=== PATIENT | female | born 1980 | race Caucasian/White ===

== ENCOUNTER 2024-11-03 15:06 | Outpatient (OUT) | payer OTHER, SELFPAY ==
--- OUTSIDE RECORDS SUMMARY | 2010-07-03 12:34 | XMS_ITS | Encounter Summary ---
Author Organization [facility] Address [address] [facility], [address] [place] [address] Care Team Providers Care Redrawer Name Role Phone Unavailable Primary Care Provider Unavailabl e Encounter Details Date Type Department Care Team (Late st Contact Info) Description 07/03/2010 12:34 PM EDT Hospital Encounter [address] [address] Reagan Hernández MD [address] [place] [address] Social History Tobacco Use Types Packs/Day Years Used Date Smoking Tobacco: Former Cigarettes 0.5 20 Smokeless Tobacco: Never Comments:occasional and soci ally Alcohol Use Standard Drinks/Week Comments Yes 0 (1 standard drink = 0.6 oz pur e alcohol) Ocassionally Comments No Sex and Gender Information Value Date Recorded Sex Assigned at Not on file Legal Sex Female 3:52 PM EST Gender Identity Not on file Sexual Orientation Not on file COVID-19 Exposure Response Date Recorded In the last 10 days, have yo u been in contact with someone who was confirmed or suspected to have Coronavirus/COVID-19? No / Unsure 05/04/2022 1:43 PM EST documented as of this encounter Plan of Treatment Not on file documented as of this encounter Visit Diagnoses Not on filedocumented in this encounter
--- OUTSIDE RECORDS SUMMARY | 2012-01-30 13:00 | XMS_ITS | Encounter Summary ---
Author Organization [facility] Address [address] [facility], [address] [place] [address] Care Team Providers Care Event Operations Manager Name Role Phone Jose Armando Alanis DO Primary Care Provider [phone] Encounter Details Date Type Department Care Team (Late st Contact Info) Description 01/30/2012 12:00 PM EST Hospital Encounter [facility] ([facility]) [address] [id number] Mara Duarte, ATTENDING PATHOLOGIST - UNIT RECEPTIONIST [address] [place] [id number] Social History Tobacco Use Types Packs/Day Years [...] Diagnoses Not on filedocumented in this encounter Care Teams Event Operations Manager Relationship Specialty Start Date End Date Jose Armando Alanis DO [address] [place] [address] PCP - General 01/30/12 03/07/12 documented as of this encounter
--- OUTSIDE RECORDS SUMMARY | 2024-11-03 15:10 | XMS_ITS | Clinical Summary ---
Author Organization [employer] Address [id number] [address] [place] [address] Care Team Providers Care Job Coaching Name Role Phone Angela Ventura MD Primary Care Provider [phone] Allergies Active Allergy Reactions Criticality Noted Date Comments Sulfamethoxazole-Trimethopri m Hives High 07/20/2013 Trimethoprim Swelling,Other (See Comments) 12/31/2018 Medications clonazePAM (KlonoPIN) 1 mg tablet Take 1 tablet (1 mg total) by mouth nightly as needed. Active escitalopram (LEXAPRO) 20 mg tablet Take 1.5 tablets (30 mg total) by mouth nightly. Active cyanocobalamin (VITAMIN B-12) 1,000 mcg/mL injection Inject 1 mL (1,000 mcg total) into the appropriate muscle every 30 (thirty) days. Pt taking 2.000 Active SUMAtriptan (IMITREX) 25 mg tablet Take 1 tablet (25 mg total) by mouth once as needed for migraine. May repeat in 2 hours if unresolved. Do not exceed 200 mg in 24 hours. Active magnesium oxide (MAG-OX) 400 mg tablet Take 1 tablet (400 mg total) by mouth in the morning. Active dextroamphetami ne-amphetamine (ADDERALL) 20 mg tablet Take 0.5 tablets (10 mg total) by mouth in the morning. Active aspirin-acetami nophen-caffeine (EXCEDRIN MIGRAINE) 250-250-65 mg per tablet Take 2 tablets by mouth. Active cetirizine (ZyrTEC) 10 mg tablet 1 (one) time each day at the same time. Active Active Problems Problem Noted Date Diagnosed Date Abnormal blood chemistry level 04/12/2021 Adjustment disorder with anxiety 04/12/2021 Altered thought processes 04/12/2021 Anxiety 04/12/2021 Attention deficit hyperactivity disorder (ADHD) 04/12/2021 Cervicogenic headache 04/12/2021 Circadian rhythm sleep disorder, shift work type 04/12/2021 Gastro-esophageal reflux disease without esophag itis 04/12/2021 Macroglossia 04/12/2021 Major depression single episode, in partial [place] ssion 04/12/2021 Obstructive sleep apnea 04/12/2021 Occipital neuralgia 04/12/2021 Pharyngeal stenosis 04/12/2021 Insomnia 04/12/2021 Psychalgia 04/12/2021 Sciatica 04/12/2021 Smoker 04/12/2021 Thyroid nodule 04/12/2021 Assessment & Plan (03/04/2024 4:14 PM EST): Tiffany Johnson is 43 y.o. female with a left thyroid nodule stable in size according to today's ultrasound. No intervention needed since nodule has been proven benign by biopsy and patient is asymptomatic. We will obtain thyroid function studies today and patient will be notified about the results. Follow-up ultrasound will be done in 1 year Assessment & Plan (02/27/2023 4:14 PM EST): Tiffany Johnson is 42 y.o. female with a left thyroid nodule stable in size according to today's ultrasound. No intervention needed since nodule has been proven benign by biopsy and patient is asymptomatic. Recent TSH was slightly suppressed so we will recheck thyroid function studies and thyroid antibodies today. Follow-up ultrasound will be done in 1 year. Patient reports tiredness so we will obtain CBC vitamin B12 and vitamin-D levels and patient will be notified about the results Assessment & Plan (03/14/2022 2:54 PM EST): Tiffany Johnson is 41 y.o. female with a multinodular goiter stable in size according to today's ultrasound. No intervention needed since dominant nodule has been proven benign by biopsy and patient is asymptomatic. 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 Reviewed with her the risk of bleeding if these enlarge > 4 cm. Will recheck with renal u/s 1 year Kidney stones 06/27/2020 Overview (06/01/2024): 07/11/20: CT 07/11/20 showed a few small intrarenal stones 11/04/2021: Based on symptomatology likely she dropped a stone into the left ureter. We discussed options of proceeding with CT stone protocol now vs conservative approach with straining urine, hydration, tamsulosin, [place] prn, Pyridium. She would prefer the latter which is reasonable. She is going to schedule the CT a few weeks out and I will see her back to review those results. Sent her urine for culture but only call if positive. Ultimately, if she does not end up getting a CT will need CHILO at minimum to f/u on the right angiomyolipoma. 12/02/2021: Multiple very small intrarenal calculi left greater than right. Discussed metabolic workup but she declines. She is asymptomatic. Will follow-up in 1 year with renal ultrasound (f/u angiomyolipoma) and KUB (f/u stones). 01/06/23: stable small stone burden. Plan recheck kub 2 years 02/29/24: Recent episodes of gross hematuria. Flank pain started approximately 3 days ago as well as urethral pressure which has been ongoing for several weeks. We will plan to get updated CT urogram since she has had a few episodes of gross hematuria. She would like to follow up in [place]. MyChart results of urine culture. She will schedule CT in [place] through [facility]. She will let me know when she gets this scheduled. She will get creatinine checked today 06/01/24: Culture was positive, so she never followed through with the CT. She would like to get it scheduled now. Assessment & Plan (06/01/2024 4:29 PM EDT): We will need to notify her of the results through [employer]. Assuming no acute findings, we will have her meet with Dr. Bradshaw in 3-4 months. She will call sooner if any problems Recurrent urinary tract infection 06/27/2020 Overview (06/01/2024): 06/27/20: 1.5 year history of uncomplicated recurrent UTIs with no hematuria with E coli. UA today is negative. Strongly correlated with intercourse. We will check a renal/bladder ultrasound and try postcoital Macrobid. I asked her to contact the office any time she suspects a UTI so we can place an order for UA/C&S. We did discuss cystoscopy may be needed down the road as well 10/09/20: Doing well. Reviewed self start therapy with macrobid. Plan recheck 1 year with renal u.s 11/04/2021: Overall doing well with self start and postcoital Macrobid--will continue--refilled for her today 12/02/2021: Urine culture 11/04/2021 was negative. Asymptomatic today. I total call the 1st sign of symptoms to obtain an order for urine culture. 06/01/24: Gross hematuria and irritative symptoms in February. Culture was positive. No hematuria since, but she has had intermittent frequency/urgency. C&S today is suggestive of infection. We will send for culture and start her on Macrobid. She will look in to cranberry/D mannose and is interested in trying postcoital Macrobid again. Assessment & Plan (06/01/2024 4:28 PM EDT): I will notify her of the results through [employer]. Migraine without aura and wi thout status migrainosus, not intractable 01/13/2020 Sinus tachycardia 04/14/2019 Angle's class II division 1 malocclusion 018 Microgenia 02/24/[address] scan, gastrointestinal tract 014 Other plastic surgery for unacceptable cosmetic appearance 12/26/2013 Intussusception intestine 12/12/2013 Encounters Date Type Department Care Team Description 10/17/2024 Telephone [facility] [address] [place] [address] [place] [address] [place] [address] James Bradshaw MD 10/13/2024 Telephone [facility] [address] [place] [address] [place] [address] Amy Pereira, NORMA from Last 3 Months Immunizations Immunization Administration Dates Next Due COVID-19, mRNA, LNP-S, PF, 1 00mcg/0.5mL Dose 05/26/2020,05/02/2020 Influenza, Unspecified 01/03/2019,01/15/2017,10/2015 Family History Medical History Relation Name Comments Heart attack Father Hypertension Father Throat cancer Father Hypertension Mother Anesthesia problems Neg Hx BRCA 1/2 Neg Hx Breast cancer Neg Hx Relation Name Status Comments Father Mother Alive Social History Tobacco Use Types Packs/Day Years Used Date Smoking Tobacco: Former Cigarettes Smokeless Tobacco: Never Comments:not interested in q uitting at this time Alcohol Use Standard Drinks/Week Comments Yes 0 (1 standard drink = 0.6 oz pur e alcohol) twice per week Social Connection and Isolat ion Panel [NHANES] Answer Date Recorded In a typical week, how many times do you talk on the phone with family, friends, or neighbors? More than three times a week 08/03/2020 How often do you get togethe r with friends or relatives? More than three times a week 08/03/2020 How often do you attend chur R[employer] or yarsani services? Never 08/03/2020 Do you belong to any clubs o r organizations such as rastafarian groups, unions, fraternal or athletic groups, or school groups? No 08/03/2020 How often do you attend meet ings of the clubs or organizations you belong to? Never 08/03/2020 Are you , , di vorced, , never , or living with a partner? 08/03/2020 AUDIT-C Answer Date Recorded Q1: How often do you have a drink containing alc ohol? 2-3 times a week 08/03/2020 Q2: How many drinks containi ng alcohol do you have on a typical day when you are drinking? 1 or 2 08/03/2020 Q3: How often do you have si x or more drinks on one occasion? Never 08/03/2020 Overall Financial Resource Strain (CARDIA) Answe r Date Recorded How hard is it for you to pa y for the very basics like food, housing, medical care, and heating? Not hard at all 08/03/2020 PHQ-2 Answer Date Recorded Total Score 15 05/01/2023 [facility] - Occupational Stress Questionnaire Answer Date Recorded Do you feel stress - tense, restless, nervous, or anxious, or unable to sleep at night because your mind is troubled all the time - these days? Not at all 08/03/2020 Exercise Vital Sign Answer Date Recorde d On average, how many days pe r week do you engage in moderate to strenuous exercise (like a brisk walk)? 0 days 08/03/2020 On average, how many minutes do you engage in exercise at this level? 0 min 08/03/2020 PRAPARE - Transportation Answer Date Re corded In the past 12 months, has l ack of transportation kept you from medical appointments or from getting medications? No 07/21 In the past 12 months, has l ack of transportation kept you from meetings, work, or from getting things needed for daily living? No 08/03/2020 Childcare Answer Date Recorded Do problems getting child ca re make it difficult for you to work or study? No 08/03/2020 Employment Answer Date Recorded Do you need help finding a [facility] and/or a training program? No 08/03/2020 Hunger Screening Answer Date Recorded Within the past 12 months we worried whether our food would run out before we got money to buy more. Never True 06/01/2024 Within the past 12 months th e food we bought just didn't last and we didn't have money to get more. Never True 06/01/2024 Purpose - Life Answer Date Recorded I have a purpose and direction in my life. Stron gly Agree 08/03/2020 Comments No Sex and Gender Information Value Date Recorded Sex Assigned at Not on file Legal Sex Female 11:23 AM EDT Gender Identity Not on file Sexual Orientation Not on file Last Filed Vital Signs Vital Sign Reading Time Taken Comments Blood Pressure 119/82 06/01/2024 4:05 PM EDT Pulse 82 06/01/2024 4:05 PM EDT Temperature 36 C (96.8 F) 08/05/2020 8:39 AM EDT Respiratory Rate 18 10/09/2020 12:44 PM EDT Oxygen Saturation 100% 08/05/2020 8:39 AM EDT Inhaled Oxygen Concentration - - Weight 70.3 kg (155 lb) 06/01/2024 4:05 PM EDT Height 175.3 cm (5' 9 ) 06/01/2024 4:05 PM EDT Body Mass Index 22.89 06/01/2024 4:05 PM EDT Plan of Treatment Upcoming Encounters Date Type Department Care Team (Late st Contact Info) Description 03/10/2025 3:30 PM EST Office Ultrasound [facility] Adult Endocrinology, A Department of [facility] [address] [place] [address] Eugene Pedro MD [address] [place] [address] Health Maintenance Due Date Last Done Comments DTaP,Tdap and Td Vaccines (1 - Tdap) 10/22/1998 COVID-19 Vaccine (3 2023-2 5 season) 2023 05/26/2020, 05/02/2020 Depression Screening 05/01/2024 05/01/2023 Influenza Vaccine 11/21/2024 02/15/2024, , 01/09/2022, Additional history exists Adult BMI Screening 06/01/2025 06/01/2024 Tobacco Screening 06/01/2025 06/01/2024 Pap Smear Discontinued 04/12/2021, 03/24, 03/22/2019, Additional history exists Medical Devices Implanted Type Area Mechanist Device Identifier Shelf Expiration Date Model / Serial / Lot Plt Bn 4 Hl Fc Id Othgn - [id number] Implanted:Qty : 1 on 08/03/2020 by Mandy Rao DDS at [facility] Plate N/A: Mouth ALONSO CRANIOMAXILLOFACIAL [id number] / / Scr 8mm Mmf - [id number] Implanted:Qty : 1 on 08/03/2020 by Mandy Rao DDS at [facility] Screw N/A: Mouth ALONSO JOSEBINGER [id number] / / Scr Bn 5mm 2mm Slf Drl Xpn Ea=Bill-Only - [id number] Implanted:Qty : 16 on 08/03/2020 by Mandy Rao DDS at [facility] Screw N/A: Mouth ALONSO CRANIOMAXILLOFACIAL [id number] / / Scr Bn 6mm 2.3mm St Er Xpn Ea=Bill-Only - [id number] Implanted:Qty : 1 on 08/03/2020 by Mandy Rao DDS at [facility] Screw N/A: Mouth ALONSO CRANIOMAXILLOFACIAL [id number] / / Scr 2.0 X 8mm Bone Cross - [id number] Implanted:Qty : 1 on 08/03/2020 by Mandy Rao DDS at [facility] Screw N/A: Mouth ALONSO CRANIOMAXILLOFACIAL [id number] / / Scr 2.0 X 10mm Bone Cross - [id number] Implanted:Qty : 3 on 08/03/2020 by Mandy Rao DDS at [facility] Screw N/A: Mouth ALONSO CRANIOMAXILLOFACIAL [id number] / / Scr 2.0 X 12mm Bone Cross - [id number] Implanted:Qty : 1 on 08/03/2020 by Mandy Rao DDS at [facility] Screw N/A: Mouth ALONSO CRANIOMAXILLOFACIAL [id number] / / Scr 2.0 X 14mm Bone Cross - [id number] Implanted:Qty : 1 on 08/03/2020 by Mandy Rao DDS at [facility] Screw N/A: Mouth ALONSO CRANIOMAXILLOFACIAL [id number] / / Procedures Procedure Name Priority Date/Time Associated Diagnosis Comments PAP SMEAR Routine 04/12/2021 6:28 PM EST Screening for cervical cancer from Last 3 Months or Most Recently Relevant to Health Maintenance Results * Pap Smear (04/12/2021 6:28 PM EST) 04/12/2021 6:28 PM EST 04/12/2021 6:30 PM EST Narrative COPATH - 04/15/2021 4:19 PM EST [facility] [address] [place] [address] Gynecologic Cytology Consultation Patient Name: TIFFANY JOHNSON : 1980 (Age: 40) Gender: F Taken: 04/12/2021 Reported: 04/15/2021 Physician(s): ALECIA Hawkins ([phone]) Copy To: [facility] Rec. #: [id number] Acct: # [id number] Final Cytologic Interpretation ThinPrep Pap Test (Vaginal): Satisfactory for evaluation. NEGATIVE FOR INTRAEPITHELIAL LESION OR MALIGNANCY. [facility]04/15/2021 Interpretation performed [place] [address], License number: [id number]. Electronically Signed Out By ANETA Luong(ASCP) Date of Last Menstrual Period: (None Given) Other Clinical Conditions: Hysterectomy Previous abnormal pap Z12.4 Screening for malignant neoplasm of cervix Source of Specimen ThinPrep Pap Test (Vaginal) Thin Prep Pap (STEEL WHEEL ENGRAVER) Fee Code(s): G0145 The Pap test is a screening test with an inherent, but low, probability of error. The Pap test is primarily effective for the diagnosis and prevention of squamous cell carcinoma. Regular screening is critical for prevention. ThinPrep liquid-based slides, which meet the Financial Institution Treasurer criteria for automated screening, have been screened by the [facility] System (as of 12/07/06) along with an additional manual rescreening by a digital strategist and, if indicated, by a pathologist. us Grace M Krotzer PARTNER INTEGRATION PLANNER-SECURITY OFFICER PATHOLOGY/CYTOLOGY ORDER SALVADOR Final Result COPATH from Last 3 Months or Most Recently Relevant to Health Maintenance Insurance [employer] [place] [id number] Advance Directives * Full Code (Latest Code Status on File) Date Activated Date Inactivated Comments 08/03/2020 6:32 PM 08/05/2020 4:34 PM Care Teams Job Coaching Relationship Specialty Start Date End [place] [address] PCP - General 09/19/17
--- OUTSIDE RECORDS SUMMARY | 2024-11-03 15:10 | XMS_ITS | Encounter Summary ---
Author Organization [employer] Address [id number] [address] [place] [address] Care Team Providers Care Door Operator Name Role Phone Angela Ventura MD Primary Care Provider [phone] Encounter Details Date Type Department Care Team (Late st Contact Info) Description 10/13/2024 [facility]phone [facility] [address] [place] [address] [place] [address] [place] [address] Amy Pereira CMA Social History Tobacco Use Types Packs/Day Years [...] 08/03/2020 How often do you attend chur ch or presybeterian services? Never 08/03/2020 Do you belong to any clubs o r organizations such as confucianist groups, unions, fraternal or athletic groups, or [...] Answer Date Recorded Total Score 15 05/01/2023 [facility] - Occupational Stress Questionnaire Answer Date [...] Recorded Do you need help finding a l al career center and/or a training program? No [...] a purpose and direction in my life. Lizeth gly Agree 08/03/2020 Comments No Sex and Gender Information Value Date Recorded Sex Assigned at Not on file Legal Sex Female 11:23 AM EDT Gender Identity Not on file Sexual Orientation Not on file documented as of this encounter Miscellaneous Notes * Telephone Encounter - Amy Pereira CMA - 10/13/2024 3:16 PM EDT Left voicemail regarding the upcoming appointment. CT is not scheduled. CT needs to be done. Provided the central scheduling phone number [phone]. documented in this encounter Plan of Treatment Upcoming Encounters Date Type Department Care Team (Late st Contact Info) Description 03/10/2025 3:30 PM EST Office Ultrasound [facility] Adult Endocrinology, A Department of [facility] [address] [place] [address] Eugene Pedro MD [address] [place] [address] documented as of this encounter Visit Diagnoses Not on filedocumented in this encounter Additional Health Concerns Assessment Noted Time PHQ-9 Depression Total Score: 15 05/01/ 024 10:37 AM EST documented as of this encounter Care Teams Door Operator Relationship Specialty Start Date End Date [place] [address] [place] [address] PCP - General 09/19/17 documented as of this encounter
--- OUTSIDE RECORDS SUMMARY | 2024-11-03 15:10 | XMS_ITS | Encounter Summary ---
Author Organization [employer] s tem Address [facility] [id number] [address] [place] [address] Care Team Providers Care Film Touch Up Inspector Name Role Phone Angela Ventura MD Primary Care Provider [phone] Encounter Details Date Type Department Care Team (Late st Contact Info) Description 06/10/2024 [facility] [address] [place] [address] Emch, Ramila, ERIC Social History Tobacco Use Types Packs/Day Years [...] often do you attend chur ch or sikh services? Never 08/03/2020 Do you belong to any clubs o r organizations such as latter day groups, unions, fraternal or athletic groups, or [...] Answer Date Recorded Total Score 15 05/01/2023 [facility] of Occupat ional Health - Occupational Stress [...] encounter Miscellaneous Notes * Telephone Encounter - Ramila Frank CNA - 06/10/2024 3:40 PM EDT Pt called back & confirmed she picked up AB documented in this encounter Plan of Treatment Upcoming Encounters Date Type Department Care Team (Late st Contact Info) Description 03/10/2025 3:30 PM EST Office [facility], A Department of [facility] [address] [place] [address] Eugene Pedro MD [address] [place] [address] documented as of this encounter Visit Diagnoses Not on filedocumented in this encounter Additional Health Concerns Assessment Noted Time PHQ-9 Depression Total Score: 15 024 10:37 AM EST documented as of this encounter Care Teams Film Touch Up Inspector Relationship Specialty Start Date [place] [address] PCP - General 09/19/17 documented as of this encounter
--- OUTSIDE RECORDS SUMMARY | 2024-11-03 15:10 | XMS_ITS | Encounter Summary ---
Author Organization [facility] Address [id number] [address] [place] [address] Care Team Providers Care Parts Control Clerk Name Role Phone Angela Ventura MD Primary Care Provider [phone] Reason for Visit * Reason Comments Med Change Request Encounter Details Date Type Department Care Team (Late st Contact Info) Description 12/26/2021 Refill [facility] [address] [place] [address] [phone] Nimo Gore PA [address] [place], [place] [id number] Social History Tobacco Use Types Packs/Day Years Used Date Smoking Tobacco: Every Day Cigarettes Smokeless Tobacco: Never Comments:not interested in [...] often do you attend chur ch or zoroastrian services? Never 08/03/2020 Do you belong to any clubs o r organizations such as spiritism groups, unions, fraternal or athletic groups, or [...] 08/03/2020 PHQ-2 Answer Date Recorded Total Score 0 08/03/2020 [facility] of Occupat ional Health - Occupational Stress [...] Do you need help finding a l ocal career center and/or a training program? No 08/03/2020 Purpose - Life Answer Date Recorded I have a purpose and direction in my life. Stron gly Agree 08/03/2020 Comments No Sex and Gender Information Value Date Recorded Sex Assigned at Not on file Legal Sex Female 11:23 AM EDT Gender Identity Not on file Sexual Orientation Not on file documented as of this encounter Miscellaneous Notes * Telephone Encounter - SYEDA Garcia - 12/26/2021 3:16 AM EDT Gin patient, unless she is actively passing a stone, she does not need Flomax documented in this encounter Plan of Treatment Upcoming Encounters Date Type Department Care Team (Late st Contact Info) Description 03/10/2025 3:30 PM EST Office Ultrasound [facility] Adult Endocrinology, A Department of [facility] [address] [place] [address] Eugene Pedro MD [address] [place] [address] documented as of this encounter Visit Diagnoses Not on filedocumented in this encounter Additional Health Concerns Assessment Noted Time PHQ-9 Depression Total Score: 0 08/04/19 21 10:03 PM EDT documented as of this encounter Care Teams Parts Control Clerk Relationship Specialty Start Date End Date [place] [address] PCP - General 09/19/17 documented as of this encounter
--- OUTSIDE RECORDS SUMMARY | 2024-11-03 15:10 | XMS_ITS | Encounter Summary ---
Author Organization [facility] tem Address [id number] [address] [place] [address] Care Team Providers Care Pupil Personnel Services Director Name Role Phone Angela Ventura MD Primary Care Provider [phone] Reason for Referral * Diagnostic Imaging (Routine) - Closed Specialty Diagnoses / Procedures Referred By Keyur choi Referred To Contact Radiology Diagnoses Renal mass Procedures CT abdomen with and without contrast Nimo Gore PA [address] [place] [id number] Phone: tel: fax: Referral ID Status Reason Start Date Expiration Date Visits Re quested Visits Authorized [id number] Closed 06/29/2020 06/29/2021 1 1 Encounter Details Date Type Department Care Team (Late st Contact Info) Description 06/29/2020 [facility] [address] [place] [address] [phone] Nimo Gore PA [address] [place] [phone] Social History Tobacco Use Types Packs/Day Years Used Date Smoking Tobacco: Every Day Cigarettes Smokeless Tobacco: Never Comments:not interested in q uitting at this time Alcohol Use Standard Drinks/Week Comments Yes 0 (1 standard drink = 0.6 oz pur e alcohol) twice per week PHQ-2 Answer Date Recorded Total Score 0 07/18/2018 Childcare Answer Date Recorded Childcare Unknown 09/01/2018 Employment Answer Date Recorded Employment Unknown 09/01/2018 Purpose - Life Answer Date Recorded Purpose and direction in life Unknown Comments No Sex and Gender Information Value Date Recorded Sex Assigned at Not on file Legal Sex Female 11:23 AM EDT Gender Identity Not on file Sexual Orientation Not on file COVID-19 Exposure Response Date Recorded In the last month, have you been in contact with someone who was confirmed or suspected to have Coronavirus / COVID-19? Yes 06/29/2020 10:55 AM EDT documented as of this encounter Miscellaneous Notes * Telephone Encounter - SYEDA Garcia - 06/29/2020 1:00 PM EDT See results from renal ultrasound. Tabitha: Please call her regarding scheduling a CT renal mass protocol. * Telephone Encounter - Tabitha Davison - 06/29/2020 1:00 PM EDT Patsy Suero called & notified patient that you would like her to have a CT. She would like you to call her as she has some questions. Thank you, Tabitha 06/29/20 * Telephone Encounter - SYEDA Garcia - 06/29/2020 1:00 PM EDT I called her and answered her questions. She is ready to schedule * Telephone Encounter - Tabitha Davison - 06/29/2020 1:[address] IS SCHEDULED FOR 07/11/20 documented in this encounter Plan of Treatment Upcoming Encounters Date Type Department Care Team (Late st Contact Info) Description 03/10/2025 3:30 PM EST Office Ultrasound [facility], A Department of [facility] [address] [place] [phone] Eugene Pedro MD [address] [place] [address] documented as of this encounter Results * CT abdomen with and without contrast (07/11/2020 8:26 AM EDT) Anatomical Region Laterality Modality Body, Abdomen, Body Covera N/A Compu ismael Tomography 07/11/2020 8:42 AM EDT Narrative 07/11/2020 8:48 AM EDT CLINICAL HISTORY: A 39-year-old female with the history of the abnormal renal ultrasound with the small right renal mass. Further evaluation of the right renal mass. TECHNIQUE: Multidetector spiral CT scan of the abdomen is performed without and during intravenous administration of 100 cc of Omnipaque 300. Multiplanar reconstruction images are reformatted. COMPARISON: Comparison is made with prior CT scan of the abdomen without contrast of 03/21/2018 and the renal ultrasound examination of 06/29/2020. FINDINGS: Lung bases are clear. There is evidence of bilateral breast implants. Liver, spleen and pancreas are normal in size, configuration and attenuation. No focal mass is identified. Gallbladder is normal. No biliary ductal dilatation is identified. Adrenal glands are normal. Both kidneys are normal in size, configuration and position. There are tiny calcific calculi in the both kidneys. There is a left-sided parapelvic cyst. No evidence of significant hydronephrosis or perinephric stranding. Both kidneys show excretion of contrast. There is a 7 mm hypodense lesion in the posterolateral aspect of the right mid kidney. No perinephric fluid collection is identified. No other enhancing mass is identified. Visualized bowel loops are unremarkable. There is no evidence of retroperitoneal lymphadenopathy or ascites. IMPRESSION: 1. There are bilateral nonobstructing intrarenal tiny calcific calculi. No evidence of hydronephrosis or perinephric stranding. 2. There is a left-sided parapelvic cyst. 3. There is a 7 mm hypodense nonenhancing lesion in the right renal cortex posterolaterally. This abnormality seen in the region of the echogenic lesion on the recent ultrasound examination. 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 No evidence of other intra-abdominal mass or ascites. All CT scans at this facility use dose modulation, iterative reconstruction, and/or weight based dosing when appropriate to reduce radiation dose to as low as reasonably achievable. Finalized by Usman Morris MD on 07/11/2020 8:48 AM Procedure Note Usman Morris MD - 07/11/2020 CLINICAL HISTORY: A 39-year-old female with the history of the abnormalrenal ultrasound with the small right renal mass. Further evaluation ofthe right renal mass. TECHNIQUE: Multidetector spiral CT scan of the abdomen is performedwithout and during intravenous administration of 100 cc of Omnipaque 300.Multiplanar reconstruction images are reformatted. COMPARISON: Comparison is made with prior CT scan of the abdomen withoutcontrast of 03/21/2018 and the renal ultrasound examination of 06/29/2020. FINDINGS: Lung bases are clear. There is evidence of bilateral breastimplants. Liver, spleen and pancreas are normal in size, configuration andattenuation. No focal mass is identified. Gallbladder is normal. Nobiliary ductal dilatation is identified. Adrenal glands are normal. Both kidneys are normal in size, configuration and position. There aretiny calcific calculi in the both kidneys. There is a left-sidedparapelvic cyst. No evidence of significant hydronephrosis or perinephricstranding. Both kidneys show excretion of contrast. There is a 7 mmhypodense lesion in the posterolateral aspect of the right mid kidney. No perinephricfluid collection is identified. No other enhancing mass is identified. Visualized bowel loops are unremarkable. There is no evidence ofretroperitoneal lymphadenopathy or ascites. IMPRESSION: 1. There are bilateral nonobstructing intrarenal tiny calcific calculi.No evidence of hydronephrosis or perinephric stranding. 2. There is a left-sided parapelvic cyst. 3. There is a 7 mm hypodense nonenhancing lesion in the right renalcortex posterolaterally. This abnormality seen in the region of theechogenic lesion on the recent ultrasound examination. This is likely salima a angiomyolipoma 4. No evidence of other intra-abdominal mass or ascites. All CT scans at this facility use dose modulation, iterativereconstruction, and/or weight based dosing when appropriate to reduceradiation dose to as low as reasonably achievable. Finalized by Usman Morris MD on 07/11/2020 8:48 AM us Nimo LANDA IMG CT ORDERABLES Final Res ult documented in this encounter Visit Diagnoses Diagnosis Renal mass- Primary Unspecified disorder of kidney and ureter Renal mass Unspecified disorder of kidney and ureter documented in this encounter Additional Health Concerns Assessment Noted Time PHQ-9 Depression Total Score: 0 07/19/19 19 7:00 PM EDT documented as of this encounter Care Teams Pupil Personnel Services Director Relationship Specialty Start Date End Date [place] [address] [place] [address] PCP - General 09/19/17 documented as of this encounter
--- OUTSIDE RECORDS SUMMARY | 2024-11-03 15:10 | XMS_ITS | Encounter Summary ---
Author Organization [facility] Address [id number] [address] [place] [address] Care Team Providers Care Hand Bobbin Cleaner Name Role Phone Angela Ventura MD Primary Care Provider [phone] Encounter Details Date Type Department Care Team (Late Contact Info) Description 11/11/2018 Telephone [facility] [address] [place] [address] Starla Tran MA Social History Tobacco Use Types Packs/Day Years Used Date Smoking Tobacco: Former Cigarettes Smokeless Tobacco: Never Alcohol Use Standard Drinks/Week Comments Yes 0 (1 standard drink = 0.6 oz pur e alcohol) PHQ-2 Answer Date Recorded Total Score 0 07/18/2018 Childcare Answer Date Recorded Childcare Unknown 09/01/2018 Employment Answer Date Recorded Employment Unknown 09/01/2018 Comments No Sex and Gender Information Value Date Recorded Sex Assigned at Not on file Legal Sex Female 11:23 AM EDT Gender Identity Not on file Sexual Orientation Not on file documented as of this encounter Plan of Treatment Upcoming Encounters Date Type Department Care Team (Late Contact Info) Description 03/10/2025 3:30 PM EST Office Ultrasound [facility], A Department of [facility] [address] [place] [phone] Eugene Pedro MD [address] [place] [address] documented as of this encounter Visit Diagnoses Not on filedocumented in this encounter Additional Health Concerns Assessment Noted Time PHQ-9 Depression Total Score: 0 07/19/19 19 7:00 PM EDT documented as of this encounter Care Teams Hand Bobbin Cleaner Relationship Specialty Start Date End Date Angela Ventura MD [facility] [place] [address] PCP - General 09/19/17 documented as of this encounter
--- OUTSIDE RECORDS SUMMARY | 2024-11-03 15:10 | XMS_ITS | Clinical Summary ---
Author Organization [facility] Address [address] [place] [address] Care Team Providers Care Talent Management Manager Name Role Phone Angela Ventura MD Primary Care Provider [phone] Allergies Active Allergy Reactions Criticality Noted Date Comments Sulfamethoxazole-Trimethoprim Hives High 2017 Medications Aspirin-Acetaminoph en-Caffeine 250-250-65 mg per tablet Take 2 tablets by mouth four times daily. As needed Active cetirizine (ZYRTEC) 10 mg tablet Zyrtec 10 MG TABS Refills: 0 Active Active clonazePAM (KLONOPIN) 1 mg tablet Take 1 mg by mouth daily at bedtime. 0 8 Active cyclobenzaprine (FLEXERIL) 10 mg tablet 1 tablet. Active escitalopram oxalate (LEXAPRO) 20 mg tablet Take 20 mg by mouth once daily. Active ondansetron orally disintegrating (ZOFRAN ODT) 8 mg disintegrating tablet Take 8 mg by mouth. Active CHANTIX CONTINUING MONTH BOX 1 mg tablet Take 1 mg by mouth twice daily. 4 8 Active zaleplon (SONATA) 10 mg capsule Take 10 mg by mouth. 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 Last address used for calculation Not on file 03/01/2020 Comments Unknown Sex and Gender Information Value Date Recorded Sex Assigned at Not on file Legal Sex Female 2:12 PM EDT Gender Identity Not on file Sexual Orientation Not on file Plan of Treatment Health Maintenance Due Date Last Done Comments Anxiety Screening 10/22/1997 Depression Screening 10/22/1997 HIV Screening 10/22/1997 Hepatitis C Screening 10/22/1997 DTaP,Tdap,Td Vaccine (1 - Tdap) 10/22/1998 Hepatitis B Vaccine (1 of 3 - 19+ 3-dose series) 10/22 Cervical Cancer Screening 10/22/[address] Colonography 10/22/2024 Cologuard (FIT-DNA) 10/22/2024 Colonoscopy 10/22/2024 Colorectal Cancer Screening 10/22/2024 Diabetes Screening 10/22/2024 Fecal Occult Blood 10/22/2024 Lipid Screening 10/22/2024 Sigmoidoscopy 10/22/2024 Influenza Vaccine (#1) 2024 01/29/2016 Insurance [employer] OOS Member Subscriber Plan / Payer (Ef fective 2017-Present) Name:Tiffany Johnson Relation to Subscriber:Spouse Name:HARJIT JOHNSON Date of :1980 (Home) Address: [address] [place] [address] Payer ID:[id number] (NAIC) Type:PPO Address: [address] [place] [id number] [facility] Care Teams Talent Management Manager Relationship Specialty Start Date End Date Angela Ventura MD [address] [facility] [address] [place] [address] PCP - General Family Medicine 12/17/17
--- OUTSIDE RECORDS SUMMARY | 2024-11-03 15:10 | XMS_ITS | Encounter Summary ---
Author Organization [employer] s tem Address [facility] [id number] [address] [place] [address] Care Team Providers Care Face Hardener Name Role Phone Angela Ventura MD Primary Care Provider Encounter Details Date Type Department Care Team (Late st Contact Info) Description 05/24/2024 [facility] [address] [place] [address] Nisreen Darden CMA Social History Tobacco Use Types Packs/Day [...] often do you attend chur ch or orthodoxy services? Never 08/03/2020 Do you belong to any clubs o r organizations such as uatsdin groups, unions, fraternal or athletic groups, or [...] Answer Date Recorded Total Score 15 05/01/2023 [facility] of Occupat ional Health - Occupational Stress [...] Recorded Do you need help finding a [facility] career center and/or a training program? No 08/03/2020 Hunger Screening Answer Date Recorded Within the past 12 months we worried whether our food would run out before we got money to buy more. Never True 03/04/2024 Within the past 12 months th e food we bought just didn't last and we didn't have money to get more. Never True 03/04/2024 Purpose - Life Answer Date Recorded I have a purpose and direction in my life. Stron gly Agree 08/03/2020 Comments No Sex and Gender Information Value Date Recorded Sex Assigned at Not on file Legal Sex Female 11:23 AM EDT Gender Identity Not on file Sexual Orientation Not on file documented as of this encounter Miscellaneous Notes * Telephone Encounter - Nisreen Darden CMA - 05/24/2024 8:46 AM EST [facility] for patient to contact central scheduling for CT scheduling this date 05/24/2024. documented in this encounter Plan of Treatment Upcoming Encounters Date Type Department Care Team (Late st Contact Info) Description 03/10/2025 3:30 PM EST Office Ultrasound [facility], A Department of [facility] [address] [place] [address] Eugene Pedro MD [address] [place] [address] documented as of this encounter Visit Diagnoses Not on filedocumented in this encounter Additional Health Concerns Assessment Noted Time PHQ-9 Depression Total Score: 15 024 10:37 AM EST documented as of this encounter Care Teams Face Hardener Relationship Specialty Start Date End Date Angela [place] [address] [place] [address] PCP - General 09/19/17 documented as of this encounter
--- OUTSIDE RECORDS SUMMARY | 2024-11-03 15:10 | XMS_ITS | Clinical Summary ---
Author Organization [facility] Address [address] [facility] [facility], [address] [place] [address] Care Team Providers Care Weaver Dobby Loom Name Role Phone Angela Ventura MD Primary Care Provider [phone] Allergies Active Allergy Reactions Criticality Noted Date Comments Sulfamethoxazole-Trimethoprim Hives High 2013 Meperidine 06/13/2012 Medications cetirizine (ZYRTEC) 10 MG tablet Take 10 mg by mouth daily as needed. Active cyclobenzaprine (FLEXERIL) 5 MG tablet Take 5 mg by mouth 3 times daily as needed for Muscle spasms. Active zolpidem (AMBIEN) 10 MG tablet Take 10 mg by mouth nightly as needed for Sleep. Active ondansetron (ZOFRAN-ODT) 8 MG disintegrating tablet Take 8 mg by mouth every 8 hours as needed for Nausea or Vomiting. Active clonazePAM (KLONOPIN) 1 MG tablet Take 1 mg by mouth nightly as needed for Anxiety. 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 Immunizations Immunization Administration Dates Next Due Influenza Vaccine, unspecified formulation 01/28 Influenza Virus Vaccine 01/15/2017 Family History Medical History Relation Name Comments Inflam Bowel Dis Brother 1 Other Brother 2 diverticulitis Cancer Father throat Heart Disease Father Kidney Disease Father Heart Disease Mother High Blood Pressure Mother Relation Name Status Comments Brother 1 Alive Brother 2 Alive Father Mother Alive Social History Tobacco Use [...] Sign Reading Time Taken Comments Blood Pressure 131/75 05/04/2022 4:26 PM EST Pulse 87 05/04/2022 4:28 PM EST Temperature 36.6 C (97.9 F) 05/04/2022 1:43 PM EST Respiratory Rate 16 05/04/2022 1:43 PM EST Oxygen Saturation 100% 05/04/2022 4:28 PM EST Inhaled Oxygen Concentration - - Weight 68 kg (150 lb) 01/31/2015 10:50 AM EST Height 175.3 cm (5' 9 ) 01/31/2015 10:50 AM EST Body Mass Index 22.15 01/31/2015 10:50 AM EST Plan of Treatment Health Maintenance Due Date Last Done Comments Depression Screen 1991 Varicella vaccine (1 of 2 - 13+ 2-dose series) 10/22/1992 HIV screen 10/22/1994 Hepatitis C screen 10/22/1997 DTaP/Tdap/Td vaccine (1 - Tdap) 10/22/1998 Hepatitis B vaccine (1 of 3 - 19+ 3-dose series) 10/22/1998 HPV (without or with Pap) 10/22/2009 Cervical cancer screen 01/22/2018 Pap smear 01/22/2018 01/22/2015 Breast cancer screen 2019 Lipids 2019 11/10/2012, 07/01/2011 COVID-19 Vaccine ( season) 2023 05/26/2020, 05/02/2020 Flu vaccine (#1) 10/21/2024 01/09/2022, , 01/01/2021, Additional history exists Colonoscopy 10/22/2024 Colorectal Cancer Screen 10/22/2024 FIT/FOBT: Average risk 10/22/2024 Fecal-DNA (Cologuard): Average risk 10/22/2024 Sigmoidoscopy/CT colonography 10/22/2024 HPV vaccine (No Doses Required) Completed Hepatitis A vaccine Aged Out No longe r eligible based on patient's age to complete this topic Hib vaccine Aged Out No longer eligi ble based on patient's age to complete this topic Meningococcal (ACWY) vaccine Aged Out No longer eligible based on patient's age to complete this topic Meningococcal B vaccine Aged Out No l onger eligible based on patient's age to complete this topic Pneumococcal 0-49 years Vaccine Aged Out No longer eligible based on patient's age to complete this topic Polio vaccine Aged Out No longer elig ible based on patient's age to complete this topic Procedures Procedure Name Priority Date/Time Associated Diagnosis Comments [employer] CYTOLOGY Routine 01/22/2015 10:36 AM EST LIPID PANEL Routine 11/10/2012 6:15 AM EDT from Last 3 Months or Most Recently Relevant to Health Maintenance Results * [employer] Cytology (01/22/2015 10:36 AM EST) Cytology Report (NOTE) [id number] [facility] ANATOMIC PATHOLOGY [address] [place] [address]. [place], [place] [address] GYNECOLOGIC CYTOLOGY REPORT Patient Name: JULIANA JOHNSON MR#: [id number] Specimen #[id number] Source: 1: CERVICAL MATERIAL, (THIN PREP VIAL) Clinical History Z01.419 Routine db2 dba exam without abnormal findings High Risk HPV DNA testing is requested if the diagnosis is ASC-US Date of prior pap: 12/2013 LMP: 12/25/2014 INTERPRETATION CERVICAL MATERIAL, (THIN PREP VIAL): Specimen Adequacy: Satisfactory for evaluation. - Endocervical/trans formation zone component present. Descriptive Diagnosis: Negative for intraepithelial lesion or malignancy. Heating Systems Installer: ANETA Zavala(ASCP) Electronically Signed Out vilma/02/04/2015 02/04/2015 12:00 AM EST [facility] 01/22/2015 10:3 6 AM EST 01/24/2015 10:36 AM EST us Conner Carlson MD PATHOLOGY/CYTOLOGY ORDERABLES Final Result Performing Organization Address City/[facility]/ZIP Co de Phone Number [facility] [address] [place] [address] * Lipid panel (11/10/2012 6:15 AM EDT) Cholesterol 167 0 - 200 mg/dL 11/10/2012 8:34 AM EDT [facility] HDL 69 >50 mg/dL 11/10/2012 8:34 AM EDT [facility] Comment: Reference range: >= 60 Negative Risk Factor LDL Cholesterol 86 0 - 100 mg/dL 11/10/2012 8:34 AM EDT [facility] Comment: Direct (measured) LDL and calculated LDL are not interchangeable tests. Chol/HDL Ratio 2.0 1.0 - 5.0 11/10/2012 8:34 AM EDT [facility] Triglycerides 64 0 - 150 mg/dL 11/10/2012 8:34 AM EDT [facility] VLDL 13 6 - 30 mg/dL 11/10/2012 8:34 AM EDT [facility] Comment: Performed at [address] [place] [address] 11/10/2012 6:15 AM EDT 11/10/2012 6:33 AM EDT us Unknown Provider Result CHEMISTRY ORDERABLES Fin al Result Performing Organization Address [facility]/ZIP Co de Phone Number [facility] [address] [place], [place] [id number] [phone] [facility] from Last 3 Months or Most Recently Relevant to Health Maintenance Insurance [employer] Advance Directives * Full Code (Latest Code Status on File) Date Activated Date Inactivated Comments 12/12/2013 2:42 AM 12/12/2013 7:50 PM Care Teams Weaver Dobby Loom Relationship Specialty Start Date End Date Angela Ventura MD PCP - General 07/11/13
--- OUTSIDE RECORDS SUMMARY | 2024-11-03 15:10 | XMS_ITS | Encounter Summary ---
Author Organization [facility] Address [id number] [address] [place] [address] Care Team Providers Care Retail Sales Assistant Name Role Phone Angela Ventura MD Primary Care Provider [phone] Reason for Visit * Reason Comments Med Change Request Encounter Details Date Type Department Care Team (Late st Contact Info) Description 12/16/2021 Refill [facility] [address] [place] [phone] Nimo Gore PA [address] [place], [place] [id number] Social History Tobacco Use Types Packs/Day Years [...] often do you attend chur ch or hindu services? Never 08/03/2020 Do you belong to any clubs o r organizations such as taoism groups, unions, fraternal or athletic groups, or [...] Answer Date Recorded Total Score 0 08/03/2020 [facility] Occupat [facility] - Occupational [...] or suspected to have Coronavirus / COVID-19? No / Unsure 11/19/2021 3:58 PM EDT documented as of this encounter Miscellaneous Notes * Telephone Encounter - SYEDA Garcia - 12/16/2021 7:20 PM EDT Gin patient-please let her know there is no need to be on Flomax. Ct did not show that she was passing a stone * Telephone Encounter - Jenn Barfield LPN - 12/16/2021 7:20 PM EDT Pt notified. She states she is not taking it and does not need it at this time. documented in this encounter Plan of Treatment Upcoming Encounters Date Type Department Care Team (Late st Contact Info) Description 03/10/2025 3:30 PM EST Office Ultrasound [facility], A Department of [facility] [address] [facility] [address] [place] [address] Eugene Pedro MD [address] [place] [address] documented as of this encounter Visit Diagnoses Not on filedocumented in this encounter Additional Health Concerns Assessment Noted Time PHQ-9 Depression Total Score: 0 08/04/19 21 10:03 PM EDT documented as of this encounter Care Teams Retail Sales Assistant Relationship Specialty Start Date End Date Angela Ventura MD [facility] [place] [address] PCP - General 09/19/17 documented as of this encounter
--- OUTSIDE RECORDS SUMMARY | 2024-11-03 15:10 | XMS_ITS | Encounter Summary ---
Author Organization [facility] Address [address] [place] [address] Care Team Providers Care Job Developer Name Role Phone Angela Ventura MD Primary Care Provider [phone] Encounter Details Date Type Department Care Team (Late Contact Info) Description 11/17/2022 Abstract [facility] [address] [place] [address] Wil Jacome MD [address] [place] [address] Social History Tobacco Use Types Packs/Day Years Used Date Smoking Tobacco: Never Alcohol Use Standard Drinks/Week Comments Yes 0 (1 standard drink = 0.6 oz pure alcohol) Alcohol: 1 or 2 drinks, 2 to 4 times a month; Caffeine: 1-2 cups/day Comments Unknown Sex and Gender Information Value Date Recorded Sex Assigned at Not on file Legal Sex Female 6:55 PM EDT Gender Identity Not on file Sexual Orientation Not on file documented as of this encounter Plan of Treatment Upcoming Encounters Date Type Department Care Team (Late Contact Info) Description 12/13/2024 1:00 PM EDT Office Visit [facility] [address] [facility] 110 [place] [address] Angela Ventura MD 112 [facility] 110 [place], [place] [phone] documented as of this encounter Visit Diagnoses Not on filedocumented in this encounter Care Teams Job Developer Relationship Specialty Start Date End Date Angela Ventura MD PCP - General Family Medicine 08/19/22 documented as of this encounter
--- OUTSIDE RECORDS SUMMARY | 2024-11-03 15:11 | XMS_ITS | Encounter Summary ---
Author Organization [facility] Address [address] [facility], [address] [place] [address] Care Team Providers Care Electronic Parts Designer Name Role Phone Angela Ventura MD Primary Care Provider [phone] Encounter Details Date Type Department Care Team (Late st Contact Info) Description 01/11/2014 Post-op Telephone [facility] General Surgery [address] [place] [address] Jenae Keith LPN Social History Tobacco Use Types Packs/Day Years Used Date Smoking Tobacco: Former Cigarettes Smokeless Tobacco: Never Alcohol Use Standard Drinks/Week Comments Yes 0 (1 standard drink = 0.6 oz pur e alcohol) socially Comments No Sex and Gender Information Value Date Recorded Sex Assigned at Not on file Legal Sex Female 3:52 PM EST Gender Identity Not on file Sexual Orientation Not on file documented as of this encounter Plan of Treatment Not on file documented as of this encounter Visit Diagnoses Not on filedocumented in this encounter Care Teams Electronic Parts Designer Relationship Specialty Start Date End Date Angela Ventura MD PCP - General 07/11/13 documented as of this encounter
--- OUTSIDE RECORDS SUMMARY | 2024-11-03 15:11 | XMS_ITS | Encounter Summary ---
Author Organization [facility] Address [address] [place] [address] Care Team Providers Care Simulation Tech Name Role Phone Angela Ventura MD Primary Care Provider [phone] Encounter Details Date Type Department Care Team (Late st Contact Info) Description 11/03/2024 Telephone [facility] 112 [facility] 100 [place] [address] Angela Ventura MD 112 [facility] 110 [place] [address] Social History Tobacco Use Types Packs/Day Years Used Date Smoking Tobacco: Never Smokeless Tobacco: Never Alcohol Use Standard Drinks/Week Comments Yes 0 (1 standard drink = 0.6 oz pure alcohol) Alcohol: 1 or 2 drinks, 2 to 4 times a month; Caffeine: 1-2 cups/day PHQ-2 Answer Date Recorded Patient Health Questionnaire-2 Score 0 09/15/2024 Comments Unknown Sex and Gender Information Value Date Recorded Sex Assigned at Not on file Legal Sex Female 6:55 PM EDT Gender Identity Not on file Sexual Orientation Not on file documented as of this encounter Miscellaneous Notes * Telephone Encounter - Nirali Da Silva LPN - 11/03/2024 9:03 AM EDT No imaging done to send-- sent fax letting the office know this * Telephone Encounter - Mel Danny - 11/03/2024 8:21 AM EDT * Telephone Encounter - Mel Ricel - 11/03/2024 8:12 AM EDT [facility] called. They did not receive any imaging on Tiffany and asked for it to be sent over.Her appointment is today. documented in this encounter Plan of Treatment Upcoming Encounters Date Type Department Care Team (Late st Contact Info) Description 12/13/2024 1:00 PM EDT Office Visit [facility] [place] [address] [facility] [address] [place] [address] Angela Ventura MD [address] [place] [address] [place] [address] documented as of this encounter Visit Diagnoses Not on filedocumented in this encounter Care Teams Simulation Tech Relationship Specialty Start Date End Date Angela Ventura MD PCP - General Family Medicine 08/19/22 documented as of this encounter
--- OUTSIDE RECORDS SUMMARY | 2024-11-03 15:11 | XMS_ITS | Encounter Summary ---
Author Organization [facility] Address [id number] [address] [place] [address] Care Team Providers Care Business Consultant Name Role Phone Angela Ventura MD Primary Care Provider [phone] Encounter Details Date Type Department Care Team (Late st Contact Info) Description 05/10/2024 [facility] [address] [place] [address] Nisreen Darden CMA Social History [...] often do you attend chur ch or faith services? Never 08/03/2020 Do you belong to any clubs o r organizations such as shinto groups, unions, fraternal or athletic groups, or [...] Answer Date Recorded Total Score 15 05/01/2023 [facility] of Occupat ional Health - [...] Recorded Do you need help finding a [facility] and/or a training program? [...] Telephone Encounter - Nisreen Darden CMA - 05/10/2024 9:55 AM EST LMVM for patient to stop by lab to provide a urine specimen prior to her appointment 05/2024. documented in this encounter Plan of Treatment Upcoming Encounters Date Type Department Care Team (Late st Contact Info) Description 03/10/2025 3:30 PM EST Office Ultrasound [facility], A Department of [facility] [address] [place] [address] Eugene Pedro MD [address] [place] [address] documented as of this encounter Visit Diagnoses Not on filedocumented in this encounter Additional Health Concerns Assessment Noted Time PHQ-9 Depression Total Score: 15 024 10:37 AM EST documented as of this encounter Care Teams Business Consultant Relationship Specialty Start Date End Date Angela [place] [address] [place] [address] PCP - General 09/19/17 documented as of this encounter
--- OUTSIDE RECORDS SUMMARY | 2024-11-03 15:11 | XMS_ITS | Encounter Summary ---
Author Organization [facility] Address [address] [place] [address] Care Team Providers Care Scuba Instructor Name Role Phone Angela Ventura MD Primary Care Provider [phone] Encounter Details Date Type Department Care Team ([facility] Contact Info) Description 03/06/2023 Abstract [facility] 112 [facility] 110 [place] [address] Angela Ventura MD 112 [facility] 110 [place] [address] Social History Tobacco Use Types Packs/Day Years Used Date Smoking Tobacco: Never Alcohol Use Standard Drinks/Week Comments Yes 0 (1 standard drink = 0.6 oz pure alcohol) Alcohol: 1 or 2 drinks, 2 to 4 times a month; Caffeine: 1-2 cups/day PHQ-2 Answer Date Recorded Patient Health Questionnaire-2 Score 0 02/18/2023 Comments Unknown Sex and Gender Information Value Date Recorded Sex Assigned at Not on file Legal Sex Female 6:55 PM EDT Gender Identity Not on file Sexual Orientation Not on file documented as of this encounter Plan of Treatment Upcoming Encounters Date Type Department Care Team (Late Contact Info) Description 12/13/2024 1:00 PM EDT Office Visit [facility] [place] 112 [facility] 110 [place] [address] Angela Ventura MD [address] [address] documented as of this encounter Visit Diagnoses Not on filedocumented in this encounter Care Teams Scuba Instructor Relationship Specialty Start Date End Date Angela Ventura MD PCP - General Family Medicine 08/19/22 documented as of this encounter
--- OUTSIDE RECORDS SUMMARY | 2024-11-03 15:11 | XMS_ITS | Encounter Summary ---
Author Organization [facility] Address [address] [place] [address] Care Team Providers Care Latin Professor Name Role Phone Angela Ventura MD Primary Care Provider [phone] Encounter Details Date Type Department Care Team (Late Contact Info) Description 05/09/2024 Abstract [facility] Babcock 112 [facility] 110 [place] [address] Angela Ventura MD 112 [facility] 110 [place] [address] Social History Tobacco Use Types Packs/Day Years [...] 1:00 PM EDT Office Visit [facility] Diaznce 112 [facility] 110 [place] [phone] Angela Ventura MD 112 [facility] 110 [place] [address] documented as of this encounter Visit Diagnoses Not on filedocumented in this encounter Care Teams Latin Professor Relationship Specialty Start Date End Date Angela Ventura MD PCP - General Family Medicine 08/19/22 documented as of this encounter
--- OUTSIDE RECORDS SUMMARY | 2024-11-03 15:11 | XMS_ITS | Encounter Summary ---
Author Organization [facility] Address [address] [place] [address] Care Team Providers Care Pipeline Dispatch Operator Name Role Phone Angela Ventura MD Primary Care Provider [phone] Encounter Details Date Type Department Care Team (Late Contact Info) Description 01/07/2023 Abstract [facility] [place] 112 [facility] 110 [place] [phone] Angela Ventura MD 112 [facility] 110 [place] [address] Social History Tobacco Use Types Packs/Day Years [...] EDT Office Visit [facility] [place] Babcock 112 [facility] 110 [place] [phone] Angela Ventura MD 112 [facility] 110 [place] [address] documented as of this encounter Visit Diagnoses Not on filedocumented in this encounter Care Teams Pipeline Dispatch Operator Relationship Specialty Start Date End Date Angela Ventura MD PCP - General Family Medicine 08/19/22 documented as of this encounter
--- OUTSIDE RECORDS SUMMARY | 2024-11-03 15:11 | XMS_ITS | Encounter Summary ---
Author Organization [facility] Address [address] [place] [address] Care Team Providers Care Livestock Nutrition Territory Manager Name Role Phone Angela Ventura MD Primary Care Provider [phone] Reason for Visit * Reason Onset Date Comments Med Refill 04/20/2024 Encounter Details Date Type Department Care Team (Late st Contact Info) Description 04/20/2024 Refill [facility] [address] [facility] 110 [place] [address] Malaika Stock PA 112 [facility] 110 [place] [address] Adjustment disorder with anxiety ; Attention deficit hyperactivity disorder (ADHD), predominantly inattentive type Social History Tobacco Use Types Packs/Day Years [...] Miscellaneous Notes * Telephone Encounter - SYEDA Yeager - 04/20/2024 10:34 AM EST Please help pt get set up for three month follow up at the end of April. OARRS reviewed, Rx sent into patient's pharmacy. documented in this encounter Plan of Treatment Upcoming Encounters Date Type Department Care Team (Late st Contact Info) Description 12/13/2024 1:00 PM EDT [facility] 112 [facility] 110 [place] [address] Angela Ventura MD 112 [facility] 110 [place] [address] documented as of this encounter Visit Diagnoses Diagnosis Adjustment disorder with anxiety Adjustment disorder with anxiety Attention deficit hyperactivity disorder (ADHD), predominantly inattentive type documented in this encounter Care Teams Livestock Nutrition Territory Manager Relationship Specialty Start Date End Date Angela Ventura MD PCP - General Family Medicine 08/19/22 documented as of this encounter
--- OUTSIDE RECORDS SUMMARY | 2024-11-03 15:11 | XMS_ITS | Encounter Summary ---
Author Organization [facility] Address [id number] [address] [place] [address] Care Team Providers Care Racket Stringer Name Role Phone Angela Ventura MD Primary Care Provider [phone] Encounter Details Date Type Department Care Team (Late st Contact Info) Description 03/31/2024 [facility] [address] [place] [address] Nisreen Darden CMA Social History [...] often do you attend chur ch or christian services? Never 08/03/2020 Do you belong to any clubs o r organizations such as congregation groups, unions, fraternal or athletic groups, or [...] Answer Date Recorded Total Score 15 05/01/2023 [facility] of Occupat ional Health - Occupational [...] Recorded Do you need help finding a [facility] career center and/or a training program? No [...] Telephone Encounter - Nisreen Darden CMA - 03/31/2024 3:04 PM EST Left reminder VM to contact central scheduling to schedule US. documented in this encounter Plan of Treatment Upcoming Encounters Date Type Department Care Team (Late st Contact Info) Description 03/10/2025 3:30 PM EST Office Ultrasound [facility], A Department of [facility] [address] [place] [address] Eugene Pedro MD [address] [place] [address] documented as of this encounter Visit Diagnoses Not on filedocumented in this encounter Additional Health Concerns Assessment Noted Time PHQ-9 Depression Total Score: 15 024 10:37 AM EST documented as of this encounter Care Teams Racket Stringer Relationship Specialty Start Date End Date Angela Ventura MD [facility] [place] [address] PCP - General 09/19/17 documented as of this encounter
--- OUTSIDE RECORDS SUMMARY | 2024-11-03 15:11 | XMS_ITS | Clinical Summary ---
Author Organization [facility] Address [address] [place] [address] Care Team Providers Care Tool And Fixture Repairer Name Role Phone Angela Ventura MD Primary Care Provider [phone] Allergies Active Allergy Reactions Criticality Noted Date Comments Sulfamethoxazole 02/18/2023 Other Reaction(s): lips swell and fever blisters Sulfamethoxazole-Trimethoprim Hives High 2013 Trimethoprim Swelling 12/31/2018 Other Reaction(s): lips swell and fever blisters, Other (See Comments) Medications aspirin-acetaminop hen-caffeine (Excedrin Migraine) 250-250-65 MG tablet Take 2 tablets by mouth. Active cetirizine (ZyrTEC ALLERGY) 10 MG tablet 1 (one) time each day at the same time. Active SUMAtriptan (Imitrex) 50 MG tabletIndications: Intractable chronic migraine without aura and without status migrainosus Take 1 tablet (50 mg) by mouth Daily as needed for migraine May repeat dose once in 2 hours if no relief. Do not exceed 2 doses in 24 hours. 9 tablet 5 4 Active cyanocobalamin (Vitamin B-12) 1000 MCG/ML injectionIndicatio ns:B12 deficiency Inject 1 mL (1,000 mcg) into the shoulder, thigh, or buttocks every 30 (thirty) days 3 mL 3 5 Active escitalopram (Lexapro) 20 MG tabletIndications: Adjustment disorder with anxiety Take 1.5 tablets (30 mg) by mouth at bedtime 135 tablet 3 5 Active econazole nitrate 1 % creamIndications:T inea pedis of right foot Apply to right foot BID 30 g 1 5 Active fluticasone (Cutivate) 0.05 % creamIndications:E czema, unspecified type Apply topically 2 (two) times a day 30 g 5 Active amphetamine-dextro amphetamine (Adderall) 15 MG tabletIndications: Attention deficit hyperactivity disorder (ADHD), predominantly inattentive type Take 1 tablet (15 mg) by mouth Daily 30 tablet 5 Active clonazePAM (KlonoPIN) 1 MG tabletIndications: Adjustment disorder with anxiety Take 1 tablet (1 mg) by mouth 2 (two) times a day as needed for anxiety 60 tablet 5 Active Fezolinetant (Veozah) 45 MG tabletIndications: Menopausal symptoms Take 45 mg by mouth Daily 90 tablet 3 5 12/15/19 25 Active ondansetron (Zofran) 4 MG tabletIndications: Other migraine without status migrainosus, not intractable Take 1 tablet (4 mg) by mouth every 8 (eight) hours if needed for nausea or vomiting for up to 7 days 28 tablet 5 11/08/19 25 Active Active Problems Problem Noted Date Diagnosed Date Onychomycosis 05/24/2024 Tinea pedis of right foot 05/24/2024 Eczema 05/24/2024 Elevated LDL cholesterol level 02/15/2024 Allergic contact dermatitis due to plants, excep t food 07/21/2023 Neck pain 04/08/2023 Bilateral carpal tunnel syndrome 03/03/2023 Assessment & Plan (03/03/2023 3:38 PM EST): Consider EMG Dr. Jacome wanted one, but insurance denied EMG Encounter for well adult exam without abnormal f indings 03/03/2023 Assessment & Plan (03/03/2023 3:47 PM EST): Modest Alcohol consumption No Tobacco Seat Belt use Exercise Regularly No Text Drive Social Accountability Migraine without status migrainosus, not intract able 03/03/2023 Assessment & Plan (03/03/2023 3:40 PM EST): Awaiting Botox injections Right hip pain 03/03/2023 Assessment & Plan (03/03/2023 3:51 PM EST): She sees Chiropractor And has had pain on palpation I wonder if she has Fibromyalgia She may benefit from seeing pain manangement Bilateral low back pain with sciatica 02/18/2023 Stress headaches 02/18/2023 Hand weakness 11/18/2022 Assessment & Plan (11/18/2022 4:18 PM EDT): ENMG BUE. Primary insomnia 09/26/2022 Status post hysterectomy 09/26/2022 Intractable chronic migraine without aura and without status migrainosus 08/19/2022 Assessment & Plan (11/18/2022 4:09 PM EDT): BTX apparently approved - [id number]. Attention deficit hyperactiv ity disorder (ADHD), predominantly inattentive type 08/19/2022 Assessment & Plan (05/24/2024 3:40 PM EST): Patient's Current ADD is controlled with current dose No evidence of overuse or abuse Weight has been stable Encouraged Medication Holidays PDMP reviewed F/U routinely every 3months Assessment & Plan (07/21/2023 2:47 PM EDT): Patient's Current ADD is controlled with current dose No evidence of overuse or abuse Weight has been stable Encouraged Medication Holidays PDMP reviewed F/U routinely every 4 months Assessment & Plan (11/18/2022 4:19 PM EDT): (Continue current regimen.). Urine level q Apr. Plan drug holiday next vacation. Shift work sleep disorder 08/19/2022 Assessment & Plan (11/18/2022 4:20 PM EDT): (Sleep hygiene approaches as prev discussed.) B12 deficiency 08/19/2022 Assessment & Plan (11/18/2022 4:21 PM EDT): (Continue B12.) Cervical paraspinal muscle spasm 08/19/2022 Assessment & Plan (11/18/2022 4:19 PM EDT): (Home PT.) Macroglossia 08/19/2022 Overview (08/19/2022): --- without clear ANITHA, KIMBERLEY=1.9 Adjustment disorder with anxiety 04/12/2021 Assessment & Plan (05/24/2024 3:41 PM EST): Patient's Medicine is effective at controlling symptoms at current dose and frequency. PDMP reviewed with no evidence of overuse and abuse D/W patient to avoid use of benzodiazepines when consuming alcohol Advised against operating heavy machinery and driving long distances while on medicines. Gastro-esophageal reflux disease without esophag itis 04/12/2021 Smoker 04/12/2021 Abnormal blood chemistry level 04/12/2021 Altered thought processes 04/12/2021 Anxiety 04/12/2021 Assessment & Plan (07/21/2023 2:53 PM EDT): Patient's Medicine is effective at controlling symptoms at current dose and frequency. PDMP reviewed with no evidence of overuse and abuse D/W patient to avoid use of benzodiazepines when consuming alcohol Advised against operating heavy machinery and driving long distances while on medicines. Cervicogenic headache 04/12/2021 Major depressive disorder wi th single episode, in partial remission 04/12/2021 Pharyngeal stenosis 04/12/2021 Psychalgia 04/12/2021 Occipital neuralgia 04/12/2021 Sciatica 04/12/2021 Thyroid nodule 04/12/2021 Overview (02/18/2023): Last Assessment & Plan: Tiffany Johnson is 41 y.o. female with a multinodular goiter stable in size according to today's ultrasound. No intervention needed since dominant nodule has been proven benign by biopsy and patient is asymptomatic. 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 We discussed options of proceeding with CT stone protocol now vs conservative approach with straining urine, hydration, tamsulosin, [place] prn, Pyridium. She would prefer the latter [...] ultrasound (f/u angiomyolipoma) and KUB (f/u stones). Recurrent urinary tract infection 06/27/2020 Overview (02/18/2023): 06/27/20: 1.5 year history of uncomplicated recurrent [...] to obtain an order for urine culture. Sinus tachycardia 04/14/2019 Angle's class II division 1 malocclusion 018 Microgenia 02/24/[address] scan, gastrointestinal tract 014 Intussusception intestine 12/12/2013 Resolved Problems Problem Noted Date Diagnosed Date Resolved Date Attention deficit hyperactiv ity disorder (ADHD) 04/12/2021 02/15/2024 Encounters Date Type Department Care Team Description 11/03/2024 Telephone [facility] [address] [facility] [address] [place] [id number] Angela Ventura MD 10/31/2024 Telephone [facility] [address] [facility] [address] [place] [address] Angela Ventura MD Med Refill 10/06/2024 Orders Only [facility] [address] [place] [address] Angela Ventura MD Chronic tension-type headache, not intractable 09/15/2024 4:30 PM EDT Office [facility] [address] [place] [address] Karlie Ruiz NP Menopausal symptoms (Primary Dx); Attention deficit hyperactivity disorder (ADHD), predominantly inattentive type ; Anxiety 09/15/2024 Refill [facility] [address] [place] [id number] Hemmer, Malaika M, PA Attention deficit hyperactivity disorder (ADHD), predominantly inattentive type ; Adjustment disorder with anxiety 09/15/2024 Bamboo flowsheet [facility] [address] [facility] [address] [place] [phone] Karlie Ruiz, JANUARY 09/15/2024 Travel from Last 3 Months Immunizations Immunization Administration Dates Next Due Influenza, Unspecified 01/03/2019,01/15/2017,10/2015 Influenza, injectable, quadrivalent 02/10/2023 Influenza, injectable, quadr ivalent, preservative free 01/09/2022,01/03/2021,01/06/2020,2019 Influenza, seasonal, injecta ble, preservative free 02/15/2024 Family History Medical History Relation Name Comments Hypertension Father Hypertension Mother Melanoma Neg Hx Relation Name Status Comments Father Alive Mother Alive Social History Tobacco Use Types Packs/Day Years Used Date Smoking Tobacco: Never Smokeless Tobacco: Never Tobacco Cessation:Counseling Given: Yes Alcohol Use Standard Drinks/Week Comments Yes 0 [...] Sign Reading Time Taken Comments Blood Pressure 116/78 09/15/2024 4:16 PM EDT Pulse 91 09/15/2024 4:16 PM EDT Temperature - - Respiratory Rate 16 09/15/2024 4:16 PM EDT Oxygen Saturation 99% 09/15/2024 4:16 PM EDT Inhaled Oxygen Concentration - - Weight 68 kg (150 lb) 09/15/2024 4:16 PM EDT Height 175.3 cm (5' 9 ) 09/15/2024 4:16 PM EDT Body Mass Index 22.15 09/15/2024 4:16 PM EDT Plan of Treatment Upcoming Encounters Date Type Department Care Team (Late st Contact Info) Description 12/13/2024 1:00 PM EDT Office Visit [facility] 112 [facility] [address] [place] [address] Angela Ventura MD 112 [facility] [address] [place] [address] Health Maintenance Due Date Last Done Comments CT Colonography 1979 Colonoscopy 1979 Colorectal Cancer Screening 1979 FIT-DNA 1979 FIT 1979 FOBT 1979 Sigmoidoscopy 1979 Mammogram 07/10/2023 07/09/2022, 02/0 10/2021, 03/20/2020, Additional history exists Influenza Vaccine (#1) 2024 , 02/10/2023, 01/09/2022, Additional history exists Pap Smear Discontinued 01/22/2015 Cervical Cancer Screening Discontinued HPV/Cotest Discontinued 04/12/2021, 03/22/2019 Procedures Procedure Name Priority Date/Time Associated Diagnosis Comments BI MAMMOGRAM SCREENING TOMOSYNTHESIS BILATERAL Routine 03/20/2020 Gastro-esophageal reflux disease without esophagitis Encounter for screening mammogram for malignant neoplasm of breast Tinea corporis Adjustment disorder with anxiety Primary insomnia Other insomnia Occipital neuralgia Macroglossia Nontoxic single thyroid nodule Nicotine dependence, unspecified, uncomplicated Headache Abnormal finding of blood chemistry, unspecified Obstructive sleep apnea (adult) (pediatric) Other diseases of pharynx Other muscle spasm Circadian rhythm sleep disorder, shift work type Migraine without aura, intractable, without status migrainosus Personal history of other diseases of the digestive system Lumbago with sciatica, unspecified side Pain disorder exclusively related to psychological factors Personal history of other specified conditions Sleep deprivation Acquired absence of both cervix and uterus Encounter for general adult medical examination without abnormal findings from Last 3 Months or Most Recently Relevant to Health Maintenance Results * Bilateral screening mammogram with tomosynthesis (03/20/2020) Anatomical Region Laterality Modality Breast Bilateral Mammography Narrative 03/20/2020 12:00 AM EST PERFORMED AT [facility] LOCATION:[place] 112 110 RESULTS BELOW History: Screening baseline mammogram Technique: Digital mammographic images of both breasts were obtained in CC and MLO projections with both standard full field and implant displaced views in both projections. Computer-aided detection was utilized. Bilateral tomosynthesis was obtained in both projections. Comparison: None Breast Composition: The breasts are heterogeneously dense which may obscure small masses. Findings: Portions of implants included on mammography displayed no abnormalities. A few benign-appearing calcifications redemonstrated bilaterally. There is no evidence of dominant mass lesion clustered microcalcifications architectural distortion or other findings in either breast to suggest the presence of malignancy. Impression: Both breasts negative for evidence of malignancy by digital mammography. A screening mammogram in one year is recommended. ACR Category: BIRADS 2 - Benign. Finalized by Oral Fields MD on 03/20/2020 12:31 PM 2 c MAMM 1 YR Procedure Note CONVERSION, GENERIC - 09/26/2022 PERFORMED AT [facility] LOCATION:[place] [address] RESULTS BELOW History: Screening baseline mammogram Technique: Digital mammographic images of both breasts were obtained in CCand MLO projections with both standard full field and implant displacedviews in both projections. Computer-aided detection was utilized.Bilateral tomosynthesis was obtained in both projections. Comparison: None Breast Composition: The breasts are heterogeneously dense which may obscure small masses. Findings: Portions of implants included on mammography displayed noabnormalities. A few benign-appearing calcifications redemonstratedbilaterally. There is no evidence of dominant mass lesion clustered microcalcifications architectural distortion or other findings in either breast to suggest the presence of malignancy. Impression: Both breasts negative for evidence of malignancy by digitalmammography. A screening mammogram in one year is recommended. ACR Category: BIRADS 2 - Benign. Finalized by Oral Fields MD on 03/20/2020 12:31 PM 2 c MAMM 1 YR Malaika LANDA IMG BI PROCEDURES Final Result from Last 3 Months or Most Recently Relevant to Health Maintenance Insurance [employer] Attn Claims MD [place] [id number] Care Teams Tool And Fixture Repairer Relationship Specialty Start Date End Date Angela Ventura MD PCP - General Family Medicine 08/19/22
--- OUTSIDE RECORDS SUMMARY | 2024-11-03 15:11 | XMS_ITS | Encounter Summary ---
Author Organization [facility] Address [address] [place] [address] Care Team Providers Care Drop Hammer Mechanic Name Role Phone Angela Ventura MD Primary Care Provider [phone] Reason for Visit * Reason Onset Date Comments Med Refill 10/31/2024 Encounter Details Date Type Department Care Team (Late st Contact Info) Description 10/31/2024 [facility] [address] [facility] [address] [place] [phone] Angela Ventura MD 112 [facility] [address] [place] [address] Med Refill Social History Tobacco Use Types Packs/Day Years [...] encounter Miscellaneous Notes * Telephone Encounter - JUSTINO CARRINGTON - 10/31/2024 10:00 AM EDT Patient is asking for a refill on Zofran to take when she gets a migraine. documented in this encounter Plan of Treatment Upcoming Encounters Date Type Department Care Team (Late st Contact Info) Description 12/13/2024 1:00 PM EDT Office Visit [facility] [address] [facility] [address] [place] [address] Angela Ventura MD 112 [facility] [address] [place] [address] documented as of this encounter Visit Diagnoses Diagnosis Other migraine without status migrainosus, not intractable- Primary documented in this encounter Care Teams Drop Hammer Mechanic Relationship Specialty Start Date End Date Angela Ventura MD PCP - General Family Medicine 08/19/22 documented as of this encounter
--- NOTE | 2024-11-03 15:15 | P.CN_ITS ---
Consult Note: HPI Data of Consult Patient: new to practice Requesting Physician: Audrey Hernandez NP Primary Care Provider: JULY Naranjo Provider: DMISC Consult Narrative Reason for consult: headaches, neck and upper back pain Narrative: Tiffany Johnson a pleasant 44 year old female presents for evaluation of chronic neck and upper back pain and headaches >18 years. Longstanding history of neck and upper back pain unresponsive to patient care secretary > 6 weeks, HEP greater than 6 weeks, botox treatments for migraines, formal PT in the past, heat, ice, massage, accupuncture, dry needling, tens, topical lidocaine, icy hot, and numerous rounds of oral steroids. has failed tizanidine, numerous muscle relaxers, and numerous nsaids in the past. currently on prn imitrex, Excedrin daily, Adderall, lexapro, and klonipin. Last evaluated by neurology >12 months ago due to change in insurance. She notes pain 4/10 increasing to 10/10 at times. Pain increased with twisting her head/neck, sitting, lying, driving, activity and sleep. no imaging of the cervical or thoracic spine available for review. cc:: CC: Audrey Hernandez NP Review of Systems ROS Musculoskeletal Reports: back pain and neck pain Exam Narrative Exam Narrative: diffuse sensitivity to neck and thoracic spine Constitutional Documenting provider has reviewed patient's vital signs: yes Common normals: no apparent distress, oriented x3, healthy appearing, alert and well nourished General appearance: cooperative HENMT Common normals: normocephalic, hearing grossly normal bilaterally and moist oral mucous membranes Head and scalp: normocephalic Eye Common normals: PERRL Pupil: PERRL Neck & C-Spine Cervical spine: cervical ROM abnormal lateral flexion to the right decreased, lateral flexion to the left decreased, rotation to the left decreased, rotation to the right decreased, anterior flexion decreased and extension decreased, pain with cervical ROM, loss of normal cervical lordosis, cervical spine tenderness C1, C2, C3, C4, C5, C6, C7 and diffuse, paracervical muscle tenderness, paracervical muscle spasm and trapezius muscle tenderness Other: negative spurlings decreased sensation right C5,6,7 strength 4/5 in BUE significant diffuse occipital tenderness and headaches diffuse myofascial tenderness and spasming Chest Common normals: inspection of chest normal Respiratory Common normals: normal respiratory effort, no retractions and no use of accessory muscles Neuro Common normals: oriented x3 Sensorium/orientation: alert Psych Common normals: mental status grossly normal, thought process normal, cooperative, affect normal, speech normal and activity/motor behavior normal Speech: normal speech Thought process: normal thought process Results Additional Findings Additional findings: If on a controlled substance or opioids, I have checked an [place]ARRS report on this patient and there are no aberrancies noted in the prescribing history.??If on a controlled substance or opioid a drug screen was completed and reviewed within the last year, and if there has not been a drug screen completed we ordered one today to monitor higher risk, state monitored pain medication use. As part of providing excellent, safe, comprehensive care, the following was completed at our patient's visit: 1. A medication reconciliation and review to ensure accurate knowledge of current/active medications, including asking our patients to inform us about any [id number] medications or herbal remedies/nutritional supplements/alternative remedies. 2. A review to specifically ensure our patients have had annual screening for screening for depression, screening for tobacco use, and screening for unhealthy alcohol use. For concerning screenings had a discussion with the patient, provided patient education, and recommended follow-up with primary care provider when appropriate. If patient noted with a risk of falling, they received education on strength, gait, and balance training to prevent future risk of falling. Portions of this note may have been carried over from the previous visit and updated as appropriate. Please note this office utilizes paper charting in addition to the electronic medical record. A list of current medications, vitals, and PMH is available there as the clinical staff outside of myself do not have access to [employer] charting during the clinic day operations. As part of providing quality comprehensive care the current medications, vitals, and PMH were reviewed in the paper chart. Assessment and Plan Assessment and Plan (1) Cervical spondylosis: (2) Thoracic spondylosis: (3) Myofascial pain syndrome: (4) Chronic neck pain: (5) Migraines: (6) Occipital neuralgia: Plan 44 year old female with extensive chronic neck and upper back pain unresponsive to > 6 weeks of PT/HEP, heat, ice, tylenol, nsaids, patient care secretary, TENS, massage, acupuncture. update thoracic xray and cervical xray. update cervical MRI without contrast to assess chronic severe neck pain with intermittent numbness tingling of bilateral shoulders and hands, likely underlying stenosis or bulging disc. defer medication management. f/u to review imaging
== END 2024-11-03 15:07 | disposition home or self-care (01) ==
PROVIDERS: PCP Family Medicine; Visit Provider Nurse Practitioner
DX: M47.812 Spondylosis without myelopathy or radiculopathy, cervical region (principal); M47.814 Spondylosis without myelopathy or radiculopathy, thoracic region; M79.18 Myalgia, other site; M54.2 Cervicalgia; G43.909 Migraine, unspecified, not intractable, without status migrainosus; M54.81 Occipital neuralgia
CPT/HCPCS: G0463

== ENCOUNTER 2024-11-03 15:46 | Outpatient (OUT) | payer OTHER, SELFPAY ==
--- NOTE | 2024-11-03 | XR_ITS ---
[address] [place] [id number] Patient Name: JULIANA SLADE MRN: [id number] date: 1980 Sex: F Assigned Patient Location: [facility] Current Patient Location: [facility] Accession/Order Number: [id number] Exam Date: 11/03/2024 16:20 Report Date: 11/03/2024 16:20 At the request of: PEDRO PAREDES NP Procedure: XR thoracic spine 2V THORACIC SPINE - - 2 views CLINICAL HISTORY: Spondylosis of Thoracic spine; M47.814 COMPARISON: Vertebral body heights appear maintained. Mild endplate degenerative changes. Pedicles appear intact. FINDINGS: Mild endplate degenerative changes. No acute bony process is seen. XR/XR thoracic spine 2V IMPRESSION: NO ACUTE BONY PROCESS. Impression dictated by: Andrea Jefferson Jr., DEmmanuelOEmmanuel 11/03/2024 4:20 PM Dictation Location: [place] [address] Electronically authenticated by: [id number] Y Date: 11/03/2024 16:20
--- NOTE | 2024-11-03 | XR_ITS ---
[address] [place] [id number] Patient Name: JULIANA SLADE MRN: [id number] date: 1980 Sex: F Assigned Patient Location: [facility] Current Patient Location: [facility] Accession/Order Number: [id number] Exam Date: 11/03/2024 16:19 Report Date: 11/03/2024 16:20 At the request of: PEDRO PAREDES NP Procedure: XR cervical spine 5V CERVICAL SPINE 5 views: CLINICAL HISTORY: Spondylosis of cervical spine; M47.812 COMPARISON: None FINDINGS: The right heights appear maintained. Moderate spondylosis C3-C7. No significant bony neural foraminal narrowing. No prevertebral soft tissue swelling. XR/XR cervical spine 5V IMPRESSION: MODERATE SPONDYLOSIS C3-C7. Impression dictated by: Andrea Jefferson Jr., D.O. 11/03/2024 4:20 PM Dictation Location: [place] [address] Electronically authenticated by: [id number] Y Date: 11/03/2024 16:20
== END 2024-11-03 15:47 | disposition home or self-care (01) ==
PROVIDERS: PCP Family Medicine; Visit Provider Nurse Practitioner
DX: M47.812 Spondylosis without myelopathy or radiculopathy, cervical region (principal); M47.814 Spondylosis without myelopathy or radiculopathy, thoracic region; M79.18 Myalgia, other site; M54.2 Cervicalgia; G43.909 Migraine, unspecified, not intractable, without status migrainosus; M54.81 Occipital neuralgia
CPT/HCPCS: 72050; 72070; G0463

== ENCOUNTER 2024-11-17 12:06 | Outpatient (OUT) | payer OTHER, SELFPAY ==
--- NOTE | 2024-11-17 12:12 | MR_ITS ---
The [address] [address] Patient Name: JULIANA SLADE MRN: [id number] date: 1980 Sex: F Assigned Patient Location: MRI Current Patient Location: MRI Accession/Order Number: [id number] Exam Date: 11/17/2024 12:22 Report Date: 11/17/2024 23:33 At the request of: PEDRO PAREDES NP Procedure: MR cervical spine wo con MR cervical spine wo con 11/17/2024 1:13 PM SIGNS AND SYMPTOMS: ^cervical spondylosis PROTOCOL: Multiplanar multisequence MR images of the cervical spine without IV contrast COMPARISON: 11/03/2024 FINDINGS: The bones of the cervical spine are in anatomic alignment. There is preservation of vertebral body. There is moderate disc height loss at C4-5, C5-C6, C6-C7, and C7-T1. There is Modic type I endplate edema at C3-C4 with Modic type II fatty endplate degenerative change at C4-C5, C5-C6, and C6-C7. The cord is normal in signal. No epidural or paraspinous fluid collection is appreciated. The visualized paraspinous soft tissues are within normal limits. The prevertebral soft tissues are within normal limits. There is a T2 hyperintense 1.3 cm nodule within the left thyroid lobe. Ultrasound correlation is recommended as malignancy is not excluded. At C2-C3: There is a normal disc, central canal, and neural foramen. At C3-C4: There is a broad-based disc bulge without joint spurring and facet hypertrophy. There is moderate to severe left and moderate right neural foraminal narrowing. There is mild spinal canal narrowing. At C4-C5: There is a broad-based disc bulge with a central disc protrusion. There is uncovertebral joint spurring and facet hypertrophy. There is moderate left and severe right neural foraminal narrowing with moderate to severe spinal canal narrowing. At C5-C6: There is uncovertebral joint spurring contributing to mild bilateral neural foraminal narrowing. No significant spinal canal narrowing. At C6-C7: There is a broad-based disc bulge with uncovertebral joint spurring. There is mild spinal canal narrowing with mild bilateral neural foraminal stenosis. At C7-T1: There is a normal disc, central canal, and neural foramen. MR/MR cervical spine wo con IMPRESSION: No cord compression or cord abnormality. At C3-C4: There is a broad-based disc bulge without joint spurring and facet hypertrophy. There is moderate to severe left and moderate right neural foraminal narrowing. There is mild spinal canal narrowing. At C4-C5: There is a broad-based disc bulge with a central disc protrusion. There is uncovertebral joint spurring and facet hypertrophy. There is moderate left and severe right neural foraminal narrowing with moderate to severe spinal canal narrowing. Lesser degrees of degenerative changes are noted as above. Impression dictated by: Wil Mason M.D. 11/17/2024 11:33 PM Dictation Location: [facility] Electronically authenticated by: [id number] Y Date: 11/17/2024 23:33
== END 2024-11-17 12:07 | disposition home or self-care (01) ==
LOC: MRI 12:06
PROVIDERS: PCP Family Medicine; Visit Provider Nurse Practitioner
DX: M47.812 Spondylosis without myelopathy or radiculopathy, cervical region (principal); M50.31 Other cervical disc degeneration, high cervical region; M50.321 Other cervical disc degeneration at C4-C5 level
CPT/HCPCS: 72141

== ENCOUNTER 2024-12-01 13:56 | Outpatient (OUT) | payer OTHER, SELFPAY ==
--- NOTE | 2024-12-01 15:35 | P.CN_ITS ---
Consult Note: HPI Data of Consult Patient: new to practice Consult date: 12/01/24 Requesting Physician: Audrey Hernandez NP Primary Care Provider: JULY BELLAMY Family Provider: CANDY Consult Narrative Reason for consult: headaches, neck and upper back pain Narrative: Tiffany Johnson a pleasant 44 year old female presents for evaluation of chronic neck and upper back pain and headaches >18 years. Longstanding history of neck and upper back pain unresponsive to medical care administrator > 6 weeks, HEP greater than 6 weeks, botox treatments for migraines, formal PT in the past, heat, ice, massage, acupuncture, dry needling, tens, topical lidocaine, icy hot, and numerous rounds of oral steroids. has failed tizanidine, numerous muscle relaxers, and numerous nsaids in the past. currently on prn imitrex, Excedrin daily, Adderall, lexapro, and klonipin. Last evaluated by neurology >12 months ago due to change in insurance. She notes pain 6/10 increasing to 10/10 at times. Pain increased with twisting her head/neck, sitting, lying, driving, activity and sleep. recently underwent updated imaging. cc:: CC: Audrey Hernandez NP Review of Systems ROS Musculoskeletal Reports: back pain, neck pain and extremity pain Meds Home Medications and Allergies Home Medications ?Medication ?Instructions ?Recorded ?Confirmed ?Type clonazepam 1 mg tablet (Klonopin) 1 mg PO DAILY PRN an xiety 11/04/24 11/04/24 History dextroamphetamine-amphetamine 7.5 7.5 mg PO DAILY 10/2111/04/24 History mg tablet (Adderall) escitalopram oxalate 20 mg tablet 20 mg PO DAILY 11/0411/04/24 History (Lexapro) Allergies Allergy/AdvReac Type Severity Reaction Status Date / Time sulfamethoxazole (From Allergy Blister Verified 11/04/24 09:54 Bactrim) trimethoprim (From Bactrim) Allergy Blister Verified 11/04/24 09:54 Exam Narrative Exam Narrative: diffuse sensitivity to neck and thoracic spine Constitutional Documenting provider has reviewed patient's vital signs: yes Common normals: no apparent distress, oriented x3, healthy appearing, alert and well nourished General appearance: cooperative HENMT Common normals: normocephalic, hearing grossly normal bilaterally and moist oral mucous membranes Head and scalp: normocephalic Eye Common normals: PERRL Pupil: PERRL Neck & C-Spine Cervical spine: cervical ROM abnormal lateral flexion to the right decreased, lateral flexion to the left decreased, rotation to the left decreased, rotation to the right decreased, anterior flexion decreased and extension decreased, pain with cervical ROM, loss of normal cervical lordosis, cervical spine tenderness C1, C2, C3, C4, C5, C6, C7 and diffuse, paracervical muscle tenderness, paracervical muscle spasm and trapezius muscle tenderness Other: decreased sensation right C5,6,7 strength 4/5 in BUE significant diffuse occipital tenderness and headaches diffuse myofascial tenderness and spasming Chest Common normals: inspection of chest normal Respiratory Common normals: normal respiratory effort, no retractions and no use of accessory muscles Neuro Common normals: oriented x3 Sensorium/orientation: alert Psych Common normals: mental status grossly normal, thought process normal, cooperative, affect normal, speech normal and activity/motor behavior normal Speech: normal speech Thought process: normal thought process Results Imaging cervical MRI: Attestation: I have reviewed the pertinent imaging results. Radiologist's impression: The bones of the cervical spine are in anatomic alignment. There is preservation of vertebral body. There is moderate disc height loss at C4-5, C5-C6, C6-C7, and C7-T1. There is Modic type I endplate edema at C3-C4 with Modic type II fatty endplate degenerative change at C4-C5, C5-C6, and C6-C7. The cord is normal in signal. No epidural or paraspinous fluid collection is appreciated. The visualized paraspinous soft tissues are within normal limits. The prevertebral soft tissues are within normal limits. There is a T2 hyperintense 1.3 cm nodule within the left thyroid lobe. Ultrasound correlation is recommended as malignancy is not excluded. At C2-C3: There is a normal disc, central canal, and neural foramen. At C3-C4: There is a broad-based disc bulge without joint spurring and facet hypertrophy. There is moderate to severe left and moderate right neural foraminal narrowing. There is mild spinal canal narrowing. At C4-C5: There is a broad-based disc bulge with a central disc protrusion. There is uncovertebral joint spurring and facet hypertrophy. There is moderate left and severe right neural foraminal narrowing with moderate to severe spinal canal narrowing. At C5-C6: There is uncovertebral joint spurring contributing to mild bilateral neural foraminal narrowing. No significant spinal canal narrowing. At C6-C7: There is a broad-based disc bulge with uncovertebral joint spurring. There is mild spinal canal narrowing with mild bilateral neural foraminal stenosis. At C7-T1: There is a normal disc, central canal, and neural forame Additional Findings Additional findings: If on a controlled substance or opioids, I have checked an [place] report on this patient and there are no aberrancies noted in the prescribing history.??If on a controlled substance or opioid a drug screen was completed and reviewed within the last year, and if there has not been a drug screen completed we ordered one today to monitor higher risk, state monitored pain medication use. As part of providing excellent, safe, comprehensive care, the following was completed at our patient's visit: 1. A medication reconciliation and review to ensure accurate knowledge of current/active medications, including asking our patients to inform us about any [id number] medications or herbal remedies/nutritional supplements/alternative remedies. 2. A review to specifically ensure our patients have had annual screening for screening for depression, screening for tobacco use, and screening for unhealthy alcohol use. For concerning screenings had a discussion with the patient, prov ided patient education, and recommended follow-up with primary care provider when appropriate. If patient noted with a risk of falling, they received education on strength, gait, and balance training to prevent future risk of falling. Portions of this note may have been carried over from the previous visit and updated as appropriate. Please note this office utilizes paper charting in addition to the electronic medical record. A list of current medications, vitals, and PMH is available there as the clinical staff outside of myself do not have access to [email or web address] charting during the clinic day operations. As part of providing quality comprehensive care the current medications, vitals, and PMH were reviewed in the paper chart. Assessment and Plan Assessment and Plan (1) Degenerative disc disease, cervical: (2) Cervical spinal stenosis: (3) Cervical radiculopathy: (4) Cervical spondylosis: (5) Thoracic spondylosis: (6) Myofascial pain syndrome: (7) Chronic neck pain: (8) Migraines: (9) Occipital neuralgia: Plan 44 year old female with extensive chronic neck and upper back pain unresponsive to > 6 weeks of PT/HEP, heat, ice, tylenol, nsaids, medical care administrator, TENS, massage, acupuncture. STAT NS consultation at [facility] for evaluation of cervical stenosis, cervical ddd, cervical radiculopathy. worsening neurological symptoms. continue f/u with PCP and endocrinology for thyroid nodules. f/u after NS consultation based on recommendations.
== END 2024-12-01 13:57 | disposition home or self-care (01) ==
LOC: PM 13:56
PROVIDERS: PCP Family Medicine; Visit Provider Nurse Practitioner
DX: M50.30 Other cervical disc degeneration, unspecified cervical region (principal); M48.02 Spinal stenosis, cervical region; M54.12 Radiculopathy, cervical region; M47.812 Spondylosis without myelopathy or radiculopathy, cervical region; M47.814 Spondylosis without myelopathy or radiculopathy, thoracic region; M79.18 Myalgia, other site; G43.909 Migraine, unspecified, not intractable, without status migrainosus; M54.81 Occipital neuralgia
CPT/HCPCS: G0463